=== PATIENT | female | born 1960 | race Hispanic/Latino ===

== ENCOUNTER → 2017-04-15 | Outpatient (CLI) | payer MEDICAID | END | disposition home or self-care (01) | LOC: RAH 09:58 | PROVIDERS: ATTEND Family Medicine | DX: Z12.31 Encounter for screening mammogram for malignant neoplasm of breast (principal) | CPT/HCPCS: 77067 ==

== ENCOUNTER 2017-05-22 22:15 | Emergency (ER) | payer MEDICAID ==
[2017-05-22 23:17] LABS: BASOPHILS % (AUTO) 0.8 % (0.0-5.0); EOSINOPHILS % (AUTO) 0.3 % (0.0-8.0); HEMATOCRIT 36.4 % (36-48); LYMPHOCYTES % (AUTO) 24.4 % (21.0-51.0); MEAN CORPUSCULAR HEMOGLOBIN 33.6 pg (27.0-33.0); MEAN CORPUSCULAR HGB CONC 35.4 g/dL (32.0-36.0); MONOCYTES % (AUTO) 6.8 % (3.0-13.0); NEUTROPHILS % (AUTO) 67.7 % (40.0-77.0); PLATELET COUNT (AUTO) 203 K/uL (130-400); RED BLOOD CELL COUNT(AUTO) 3.83 MIL/uL (4.00-5.50); RED CELL DISTRIBUTION WIDTH 13.4 % (11.0-15.5); WHITE BLOOD COUNT (AUTO) 12.5 K/uL (4.8-10.8)
[2017-05-22 23:25] LABS: CREATININE 0.5 mg/dL (0.5-1.5); POTASSIUM 3.7 mmol/L (3.5-5.1)
[2017-05-22 23:30] LABS: ALBUMIN 2.8 g/dL (3.5-5.0); BILIRUBIN,TOTAL 0.3 mg/dL (0.2-1.0); TOTAL PROTEIN, SERUM 6.9 g/dL (6.0-8.3)
[2017-05-23] MEDS ORDERED: SODIUM CHLORIDE 0.9% 1000ML 1,000 ML IV ONE (00:04)
[2017-05-23 00:27] LABS: APPEARANCE,URINE CLEAR (CLEAR); COLOR,URINE STRAW (YELLOW)
[2017-05-23 00:28] LABS: BILIRUBIN,URINE NEGATIVE (NEGATIVE); GLUCOSE, URINE (UA) NEGATIVE (NEGATIVE); KETONES,URINE NEGATIVE (NEGATIVE); LEUKOCYTE ESTERASE ,URINE NEGATIVE (NEGATIVE); NITRATE,URINE NEGATIVE (NEGATIVE); OCCULT BLOOD,URINE NEGATIVE (NEGATIVE); PH,URINE 6.5 (5.0-8.0); PROTEIN,URINE NEGATIVE (NEGATIVE); UROBILINOGEN,URINE 0.2 mg/dL (0.2-1.0)
== END 2017-05-23 02:35 | disposition home or self-care (01) ==
LOC: EDH 22:15
DX: E11.649 Type 2 diabetes mellitus with hypoglycemia without coma (principal); E78.5 Hyperlipidemia, unspecified; I10 Essential (primary) hypertension; E07.9 Disorder of thyroid, unspecified; Z88.5 Allergy status to narcotic agent; Z90.710 Acquired absence of both cervix and uterus
CPT/HCPCS: 36415; 80053; 81003; 82948 ×3; 85025; 96360; 96361; 99285; J7030

== ENCOUNTER → 2018-09-26 | Outpatient (CLI) | payer MEDICAID ==
[~2018-09-26] MED LIST: ALEN70TA10 PO; FLUO40CA49 PO; LEVO112T7 PO; LOSA100T58 PO; MELO-108 PO; OXCA150T27 PO; SITA100T12 PO; ZIPR60CA PO
== END | disposition home or self-care (01) ==
LOC: OIH 10:00
PROVIDERS: ATTEND Family Medicine
DX: M19.041 Primary osteoarthritis, right hand (principal); M19.031 Primary osteoarthritis, right wrist
CPT/HCPCS: 73110; 73130

== ENCOUNTER 2019-01-13 21:49 | Emergency (ER) | payer MEDICAID ==
[2019-01-13] MEDS ORDERED: IBUPROFEN 600 MG TABLET ONE (22:01)
== END 2019-01-13 22:41 | disposition home or self-care (01) ==
LOC: EDH 21:49
DX: S83.8X2A Sprain of other specified parts of left knee, initial encounter (principal); E11.9 Type 2 diabetes mellitus without complications; E78.5 Hyperlipidemia, unspecified; I10 Essential (primary) hypertension; Z72.0 Tobacco use; X50.9XXA Other and unspecified overexertion or strenuous movements or postures, initial encounter; Y93.89 Activity, other specified; Y92.098 Other place in other non-institutional residence as the place of occurrence of the external cause; Y99.8 Other external cause status
CPT/HCPCS: 73562

== ENCOUNTER → 2019-05-01 | Outpatient (CLI) | payer MEDICAID | END | disposition home or self-care (01) | LOC: OIH 11:12 | PROVIDERS: ATTEND Family Medicine | DX: I10 Essential (primary) hypertension (principal) | CPT/HCPCS: 71046 ==

== ENCOUNTER 2019-11-11 01:23 | Observation (INO) | payer MEDICAID ==
[~2019-11-11] VITALS: Ht 160 cm; Wt 87.1 kg
[~2019-11-11 01:23] MED LIST changes: -ALEN70TA10 PO; +ALEN70TA69 PO
[2019-11-11] MEDS ORDERED: MECLIZINE HCL 25 MG TABLET ONE ×2 (02:00→02:05)
[2019-11-11 02:02] LABS: BASOPHILS % (AUTO) 0.5 % (0.0-5.0); EOSINOPHILS % (AUTO) 0.6 % (0.0-8.0); HEMATOCRIT 43.9 % (36-48); LYMPHOCYTES % (AUTO) 31.4 % (21.0-51.0); MEAN CORPUSCULAR HEMOGLOBIN 31.2 pg (27.0-33.0); MEAN CORPUSCULAR VOLUME 94.4 fL (79-99); MONOCYTES % (AUTO) 6.2 % (3.0-13.0); NEUTROPHILS % (AUTO) 60.9 % (40.0-77.0); PLATELET COUNT (AUTO) 260 K/uL (130-400); RED BLOOD CELL COUNT(AUTO) 4.65 MIL/uL (4.00-5.50); RED CELL DISTRIBUTION WIDTH 13.2 % (11.0-15.5); WHITE BLOOD COUNT (AUTO) 12.2 K/uL (4.8-10.8)
[2019-11-11 02:11] LABS: CREATININE 0.7 mg/dL (0.5-1.5); POTASSIUM 4.1 mmol/L (3.5-5.1)
[2019-11-11 02:15] LABS: ALBUMIN 3.6 g/dL (3.5-5.0); BILIRUBIN,TOTAL 0.3 mg/dL (0.2-1.0); INR 0.89 (0.85-1.15); PARTIAL THROMBOPLASTIN TIME 27.5 SEC (26.3-35.5); PROTHROMBIN TIME 9.7 SEC (9.6-11.6); TOTAL PROTEIN, SERUM 8.3 g/dL (6.0-8.3)
[2019-11-11 02:39] LABS: BILIRUBIN,URINE Negative (NEGATIVE); COLOR,URINE Yellow (YELLOW); GLUCOSE, URINE (UA) Negative (NEGATIVE); KETONES,URINE Negative (NEGATIVE); LEUKOCYTE ESTERASE ,URINE Negative (NEGATIVE); NITRATE,URINE Negative (NEGATIVE); OCCULT BLOOD,URINE Negative (NEGATIVE); PH,URINE 6.5 (5.0-8.0); PROTEIN,URINE POS 2+ mg/dL (NEGATIVE); UROBILINOGEN,URINE 0.2 mg/dL (0.2-1.0)
[2019-11-11 02:43] LABS: APPEARANCE,URINE SLIGHTLY CLOUDY (CLEAR)
[2019-11-11 02:55] LABS: BACTERIA,URINE Few /HPF (None Seen); RBC,URINE 0-1 /HPF (0-1)
[2019-11-11] MEDS ORDERED: ASPIRIN 325 MG TABLET ONE (03:07)
[2019-11-11] MEDS ORDERED: POTASSIUM CHLORIDE 10% ELIXIR 20 MEQ/15 ML UDCUP PO PRN (06:15)
[2019-11-11] MEDS ORDERED: POTASSIUM CHLORIDE 20 MEQ ERTAB PO PRN (06:15)
[2019-11-11] MEDS ORDERED: ACETAMINOPHEN 325 MG TAB PO PRN (06:15)
[2019-11-11] MEDS ORDERED: POTASSIUM CHLORIDE 20MEQ/100ML 100 ML IV PRN (06:15)
[2019-11-11] MEDS ORDERED: HYDRALAZINE HCL 20 MG/ML VIAL IV PRN (06:15)
[2019-11-11] MEDS ORDERED: NITROGLYCERIN 0.4 MG SL TAB SL PRN (06:15)
[2019-11-11] MEDS ORDERED: ONDANSETRON HCL 4 MG/2 ML VIAL IV PRN (06:15)
[2019-11-11] MEDS ORDERED: MORPHINE SULFATE 2 MG/ML 1ML SYG IV PRN (06:15)
[2019-11-11] MEDS ORDERED: DiphenhydrAMINE HCL 50 MG/ML VIAL IV PRN (06:15)
[2019-11-11] MEDS ORDERED: ZOLPIDEM TARTRATE 5 MG TAB PO PRN (06:15)
[2019-11-11] MEDS ORDERED: LIDOCAINE HCL-MPF 1% 2ML VIAL IV PRN (06:15)
[2019-11-11] MEDS ORDERED: LACTULOSE 20 GM/30 ML UDCUP PO PRN (06:15)
[2019-11-11] MEDS ORDERED: MECLIZINE HCL 25 MG TABLET PO PRN (06:30)
[2019-11-11 06:37] LABS: HEMOGLOBIN A1C 7.5 % (4.0-6.0)
[2019-11-11 06:59] LABS: CHOLESTEROL 194 mg/dL (<200); HDL CHOLESTEROL 69 mg/dL (35-85); TRIGLYCERIDES 170 mg/dL (30-200)
[2019-11-11 07:00] LABS: LDL DIRECT 105 mg/dL (0-99)
[2019-11-11] MEDS: INSULIN HUMULIN R 100 UNIT/ML 3ML SQ SCH ×4 (07:30→20:46)
[2019-11-11 08:31] VITALS: BP 161/79
[2019-11-11] MEDS: LOSARTAN 50 MG TABLET PO SCH ×2 (09:00→10:14)
[2019-11-11] MEDS: FAMOTIDINE 20MG TAB 20 MG TAB PO SCH ×3 (09:00→20:48)
[2019-11-11] MEDS: SODIUM CHLORIDE 0.9% 1000ML 1,000 ML IV SCH (10:04)
[2019-11-11] MEDS: ASPIRIN 81 MG EC TAB PO SCH (10:14)
[2019-11-11] MEDS: ENOXAPARIN SODIUM 40 MG/0.4 ML SYRINGE SQ SCH (10:16)
[2019-11-11] MEDS ORDERED: ERGO500014 PO (11:17)
[2019-11-11] MEDS ORDERED: LEVO125T11 PO (11:17)
[2019-11-11] MEDS ORDERED: OXCA150T27 PO (11:17)
[2019-11-11] MEDS ORDERED: METF-446 PO (11:17)
[2019-11-11] MEDS ORDERED: FAMO20TA8 PO (11:17)
[2019-11-11] MEDS ORDERED: LOSA100T58 PO (11:17)
[2019-11-11] MEDS ORDERED: HYDR-4458 PO (11:17)
[2019-11-11] MEDS ORDERED: INSLAN SQ (11:17)
[2019-11-11] MEDS ORDERED: ZIPR60CA PO (11:17)
[2019-11-11] MEDS ORDERED: LORA0.5T83 PO (11:17)
[2019-11-11] MEDS ORDERED: LORAZEPAM 0.5 MG TABLET PO PRN (11:30)
[2019-11-11 11:36] VITALS: BP 135/59
--- NOTE | 2019-11-11 16:19 | NUR ---
INITIAL: Met with pt this afternoon to discuss dcp. Pt mentions that she lives w her dtr Frances. Prior to admission she used a cane for ambulation. Sh requires assistance w ADLs from her provider. Pt unable to recall # of provider hours. Pt states that she also has a chair avail. Pt feels safe and comfortable to [place]. CM to continue to follow and wait for Md recommendations. Addendum: 11/11/19 at 1621 by ALVA SANCHEZ Amended: Links added.
[2019-11-11 16:22] VITALS: BP 119/61
[2019-11-11 20:34] VITALS: BP 131/69
[2019-11-11] MEDS: OXCARBAZEPINE 300 MG TAB PO SCH (20:50)
[2019-11-11 23:23] VITALS: BP 129/74
[2019-11-12 03:38] VITALS: BP 136/78
[2019-11-12 06:11] LABS: BASOPHILS % (AUTO) 0.5 % (0.0-5.0); EOSINOPHILS % (AUTO) 0.5 % (0.0-8.0); HEMATOCRIT 40.4 % (36-48); LYMPHOCYTES % (AUTO) 29.3 % (21.0-51.0); MEAN CORPUSCULAR HEMOGLOBIN 30.6 pg (27.0-33.0); MEAN CORPUSCULAR HGB CONC 32.7 g/dL (32.0-36.0); MEAN CORPUSCULAR VOLUME 93.7 fL (79-99); MONOCYTES % (AUTO) 6.6 % (3.0-13.0); NEUTROPHILS % (AUTO) 62.7 % (40.0-77.0); PLATELET COUNT (AUTO) 242 K/uL (130-400); RED BLOOD CELL COUNT(AUTO) 4.31 MIL/uL (4.00-5.50); RED CELL DISTRIBUTION WIDTH 13.1 % (11.0-15.5); WHITE BLOOD COUNT (AUTO) 10.1 K/uL (4.8-10.8)
[2019-11-12 06:29] LABS: ALBUMIN 3.2 g/dL (3.5-5.0); BILIRUBIN,TOTAL 0.4 mg/dL (0.2-1.0); CREATININE 0.6 mg/dL (0.5-1.5); MAGNESIUM 1.6 mg/dL (1.80-2.40); PHOSPHORUS 3.3 mg/dL (2.5-4.9); POTASSIUM 3.8 mmol/L (3.5-5.1); TOTAL PROTEIN, SERUM 7.4 g/dL (6.0-8.3)
[2019-11-12] MEDS: INSULIN HUMULIN R 100 UNIT/ML 3ML SQ SCH ×2 (06:34→11:30)
[2019-11-12] MEDS: SODIUM CHLORIDE 0.9% 1000ML 1,000 ML IV SCH ×2 (06:35→14:04)
[2019-11-12] MEDS ORDERED: LEVOTHYROXINE 150 MCG TABLET PO SCH (07:30)
[2019-11-12] MEDS ORDERED: LEVOTHYROXINE 125 MCG TABLET PO SCH (07:30)
[2019-11-12 08:00] VITALS: BP 131/67
[2019-11-12] MEDS: OXCARBAZEPINE 300 MG TAB PO SCH (09:00)
[2019-11-12] MEDS ORDERED: INSULIN GLARGINE 100 UNITS/ML 10 ML VIAL SQ SCH (09:00)
[2019-11-12] MEDS ORDERED: ZIPRASIDONE HCL 20 MG CAPSULE PO SCH ×2 (09:00→10:45)
[2019-11-12] MEDS: ASPIRIN 81 MG EC TAB PO SCH (09:42)
[2019-11-12] MEDS: FAMOTIDINE 20MG TAB 20 MG TAB PO SCH (09:42)
[2019-11-12] MEDS: LOSARTAN 50 MG TABLET PO SCH (09:43)
[2019-11-12] MEDS: ENOXAPARIN SODIUM 40 MG/0.4 ML SYRINGE SQ SCH (09:44)
[2019-11-12 11:53] VITALS: BP 139/75
--- NOTE | 2019-11-12 13:00 | NUR ---
PATIENT REFUSED TO HAVE MRI DONE , ASKED HER ON REASON ,PER PATIENT STATEMENT " NO OTHER REASON OTHER THAN JUST DONT WANT TO HAVE IT DONE". PATIENT SIGNED REFUSAL FORM .PATIENT STATED SHE ALSO JUST WANTS TO GO HOME ALREADY . INFORMED PRIMARY MUMTAZ CANTU .PER PRIMARY WILL DC PLAN FOR THIS AFTERNOON
[2019-11-12] MEDS ORDERED: FLU VACC QS2020-21(6MOS UP)/PF 60 MCG/0.5 ML ML IM ONE ×2 (16:00)
--- NOTE | 2019-11-12 16:25 | NUR ---
DISCHARGE PROVIDED DISCHARGE INSTRUCTIONS TO PATIENT...WENT OVER SEVERAL TOPICS WITH HER INCLUDING MANAGING HER DM, QUITTING SMOKING AND MANAGING HER HTN...ANSWERED ALL QUESTIONS AND CONCERNS...REMINDED HER TO FOLLOW UP WITH HER PRIMARY CARE PHYSICIAN APPOINTMENT AND CONTINUE TO TAKE HER MEDS PRESCRIBED.
== END 2019-11-12 16:15 | disposition home or self-care (01) ==
LOC: EDH 01:23 → EDHIP 01:24 → 3AH 07:45
PROVIDERS: ADMIT Internal Medicine Critical Care Medicine; ATTEND Internal Medicine Critical Care Medicine
DX: I20.8 Other forms of angina pectoris (principal); R55 Syncope and collapse; I10 Essential (primary) hypertension; E11.9 Type 2 diabetes mellitus without complications; E78.5 Hyperlipidemia, unspecified; E03.9 Hypothyroidism, unspecified; E66.9 Obesity, unspecified; J32.9 Chronic sinusitis, unspecified; F41.9 Anxiety disorder, unspecified; F17.200 Nicotine dependence, unspecified, uncomplicated; Z23 Encounter for immunization; Z86.73 Personal history of transient ischemic attack (TIA), and cerebral infarction without residual deficits; Z96.651 Presence of right artificial knee joint; Z79.899 Other long term (current) drug therapy; Z88.5 Allergy status to narcotic agent; Z68.35 Body mass index [BMI] 35.0-35.9, adult
CPT/HCPCS: 36415 ×2; 70450; 71045; 80053 ×2; 80061; 81001; 82550; 82948 ×7; 83036; 83690; 83735; 83880; 84100; 84443; 84484 ×3; 85025 ×2; 85610; 85730; 90471; 93005; 93306; 93356; 93880; 96360; 96361 ×2; 96372 ×2; 99285; G0378 ×24; J1650 ×2; Q2035; G0008

== ENCOUNTER → 2019-11-28 | Outpatient (CLI) | payer MEDICAID ==
[~2019-11-28] MED LIST changes: -ALEN70TA69 PO; +ERGO500014 PO; +FAMO20TA8 PO; -FLUO40CA49 PO; +HYDR-4458 PO; +INSLAN SQ; -LEVO112T7 PO; +LEVO125T11 PO; +LORA0.5T83 PO; -MELO-108 PO; +METF-446 PO; -SITA100T12 PO
== END | disposition home or self-care (01) ==
LOC: OIH 10:43
PROVIDERS: ATTEND Family Medicine
DX: I25.10 Atherosclerotic heart disease of native coronary artery without angina pectoris (principal); I10 Essential (primary) hypertension
CPT/HCPCS: 71046

== ENCOUNTER 2019-12-03 22:53 | Observation (INO) | payer MEDICAID ==
[~2019-12-03] VITALS: Ht 152 cm; Wt 86.2 kg
[2019-12-03] MEDS ORDERED: PREDNISONE 20 MG TABLET ONE (23:49)
[2019-12-03] MEDS ORDERED: IPRATROPIUM/ALBUTEROL SULFATE 3 ML SOLUTION IH ONE (23:53)
[2019-12-04 00:21] LABS: CREATININE 0.7 mg/dL (0.5-1.5)
[2019-12-04 00:26] LABS: ALBUMIN 3.5 g/dL (3.5-5.0); BILIRUBIN,TOTAL 0.4 mg/dL (0.2-1.0); TOTAL PROTEIN, SERUM 8.2 g/dL (6.0-8.3)
[2019-12-04 00:29] LABS: INR 0.94 (0.85-1.15); PARTIAL THROMBOPLASTIN TIME 26.5 SEC (26.3-35.5); PROTHROMBIN TIME 10.2 SEC (9.6-11.6)
[2019-12-04 00:36] LABS: BASOPHILS % (AUTO) 0.6 % (0.0-5.0); EOSINOPHILS % (AUTO) 0.7 % (0.0-8.0); HEMATOCRIT 41.3 % (36-48); LYMPHOCYTES % (AUTO) 26.3 % (21.0-51.0); MEAN CORPUSCULAR HGB CONC 33.2 g/dL (32.0-36.0); MEAN CORPUSCULAR VOLUME 93.4 fL (79-99); MONOCYTES % (AUTO) 7.3 % (3.0-13.0); NEUTROPHILS % (AUTO) 64.8 % (40.0-77.0); PLATELET COUNT (AUTO) 264 K/uL (130-400); RED BLOOD CELL COUNT(AUTO) 4.42 MIL/uL (4.00-5.50); RED CELL DISTRIBUTION WIDTH 13.5 % (11.0-15.5); WHITE BLOOD COUNT (AUTO) 12.7 K/uL (4.8-10.8)
[2019-12-04 00:52] LABS: B-TYPE NATRIURETIC PEPTIDE 7 pg/mL (0-100)
[2019-12-04] MEDS ORDERED: CEFTRIAXONE SODIUM 1 GM ONE (01:36)
[2019-12-04] MEDS ORDERED: AZITHROMYCIN 500MG+NS 250ML 250 ML IV ONE (01:36)
[2019-12-04] MEDS ORDERED: METHYLPREDNISOLONE SOD SUCC 40MG/ML 1ML ONE ×2 (04:34→11:51)
[2019-12-04] MEDS ORDERED: ALBUTEROL INHALER 90MCG/INH IH ONE (04:34)
[2019-12-04] MEDS ORDERED: METHYLPREDNISOLONE SOD SUCC 40MG/ML 1ML IVP SCH (06:00)
[2019-12-04] MEDS ORDERED: ALBUTEROL INHALER 90MCG/INH IH SCH (06:00)
[2019-12-04] MEDS ORDERED: NICOTINE 21 MG/ 24 HR PATCH TD SCH (06:45)
[2019-12-04 09:17] LABS: BASOPHILS % (AUTO) 0.3 % (0.0-5.0); EOSINOPHILS % (AUTO) 0.1 % (0.0-8.0); HEMATOCRIT 42.5 % (36-48); LYMPHOCYTES % (AUTO) 11.5 % (21.0-51.0); MEAN CORPUSCULAR HEMOGLOBIN 31.4 pg (27.0-33.0); MEAN CORPUSCULAR HGB CONC 32.5 g/dL (32.0-36.0); MEAN CORPUSCULAR VOLUME 96.6 fL (79-99); MONOCYTES % (AUTO) 1.1 % (3.0-13.0); NEUTROPHILS % (AUTO) 86.7 % (40.0-77.0); PLATELET COUNT (AUTO) 245 K/uL (130-400); RED CELL DISTRIBUTION WIDTH 13.6 % (11.0-15.5); WHITE BLOOD COUNT (AUTO) 11.9 K/uL (4.8-10.8)
[2019-12-04 09:23] LABS: CARBON DIOXIDE 24 mmol/L (21-32); CHLORIDE 101 mmol/L (101-111); CREATININE 0.8 mg/dL (0.5-1.5); GLOMERULAR FILTR. RATE CALC 78 mL/min (>60); GLUCOSE,RANDOM 214 mg/dL (70-105); POTASSIUM 5.5 mmol/L (3.5-5.1); SODIUM SERUM 136 mmol/L (136-145); UREA NITROGEN, BLOOD 12 mg/dL (7-18)
[2019-12-04] MEDS ORDERED: ROSU5TAB12 PO (09:42)
[2019-12-04] MEDS ORDERED: BIMA12.5OS OU (09:42)
[2019-12-04] MEDS ORDERED: ASPI-1197 PO (09:42)
[2019-12-04] MEDS ORDERED: FLUT1AER IH (09:42)
[2019-12-04] MEDS ORDERED: ONDANSETRON HCL 4 MG/2 ML VIAL IVP PRN (10:15)
[2019-12-04] MEDS ORDERED: CEFTRIAXONE SODIUM 1 GM IVP SCH ×2 (10:15→14:00)
[2019-12-04] MEDS ORDERED: HYDRALAZINE HCL 20 MG/ML VIAL IV PRN (10:15)
[2019-12-04] MEDS ORDERED: ACETAMINOPHEN 325 MG TAB PO PRN (10:15)
[2019-12-04] MEDS ORDERED: FUROSEMIDE 10 MG/ML 2ML VIAL IV SCH (10:15)
[2019-12-04] MEDS ORDERED: LOPERAMIDE 1 MG/7.5 ML UDCUP PO PRN (10:15)
[2019-12-04] MEDS ORDERED: AZITHROMYCIN 500MG+NS 250ML 250 ML IV SCH (10:15)
[2019-12-04 10:28] LABS: ERYTHROCYTE SEDIMENTATION RATE 22 MM/HR (0-30)
[2019-12-04] MEDS ORDERED: FUROSEMIDE 10 MG/ML 4ML VIAL ONE (11:52)
[2019-12-04] MEDS ORDERED: DEXAMETHASONE SOD PHOSPHATE 4 MG/ML 1ML VIAL IVP SCH (14:30)
[2019-12-04] MEDS ORDERED: SODIUM CHLORIDE 0.9% 50 ML IV ONE (15:41)
--- NOTE | 2019-12-04 18:17 | NUR ---
PATIENT CALLED BY PHONE FOR DC PLANNING. PATIENT LIVES ALONE BUT RIGHT NEXT TO HER DAUGHTER BALBIR WHO IS ALSO HER PROVIDER. STATES DAUGHTER ASSISTS WITH ALL ADLS; SHE IS AMBULATORY, USES A CANE AT TIMES, HAS A SHOWER BENCH, DOES NOT DRIVE AND HOME IS SAFE AND ACCESSIBLE, DCP TO HOME [place] TO ARRANGE TRANSPORT CM TO FOLLOW Addendum: 12/04/19 at 1820 by GUNNER VIEIRA RN CM Amended: Links added.
[2019-12-04] MEDS ORDERED: DEXAMETHASONE SOD PHOSPHATE 10MG/ML 1ML VIAL ONE (20:07)
[2019-12-04] MEDS ORDERED: FUROSEMIDE 10 MG/ML 2ML VIAL ONE (20:07)
[2019-12-04] MEDS ORDERED: FAMOTIDINE 20MG TAB 20 MG TAB ONE (20:16)
[2019-12-04] MEDS ORDERED: FAMOTIDINE 20MG TAB 20 MG TAB PO SCH (21:00)
[2019-12-05] MEDS ORDERED: AZITHROMYCIN 500MG+NS 250ML 250 ML IV SCH (01:00)
[2019-12-05] MEDS ORDERED: CEFTRIAXONE SODIUM 1 GM ONE (02:45)
[2019-12-05 06:16] LABS: BASOPHILS % (AUTO) 0.2 % (0.0-5.0); EOSINOPHILS % (AUTO) 0.3 % (0.0-8.0); HEMATOCRIT 42.3 % (36-48); LYMPHOCYTES % (AUTO) 10.9 % (21.0-51.0); MEAN CORPUSCULAR HGB CONC 33.1 g/dL (32.0-36.0); MEAN CORPUSCULAR VOLUME 93.6 fL (79-99); MONOCYTES % (AUTO) 3.5 % (3.0-13.0); NEUTROPHILS % (AUTO) 84.6 % (40.0-77.0); PLATELET COUNT (AUTO) 277 K/uL (130-400); RED BLOOD CELL COUNT(AUTO) 4.52 MIL/uL (4.00-5.50); RED CELL DISTRIBUTION WIDTH 13.2 % (11.0-15.5); WHITE BLOOD COUNT (AUTO) 17.3 K/uL (4.8-10.8)
[2019-12-05 06:37] LABS: ALBUMIN 3.6 g/dL (3.5-5.0); BILIRUBIN,TOTAL 0.2 mg/dL (0.2-1.0); CREATININE 0.9 mg/dL (0.5-1.5); MAGNESIUM 1.7 mg/dL (1.80-2.40); PHOSPHORUS 4.3 mg/dL (2.5-4.9); POTASSIUM 4.6 mmol/L (3.5-5.1); TOTAL PROTEIN, SERUM 8.3 g/dL (6.0-8.3)
[2019-12-05 07:41] LABS: ABG BASE EXCESS -2.2 mmol/L (-2.0-3.0); ABG HCO3 23.9 mmol/L (21.0-28.0); ABG OXYGEN SATURATION 95.2 % (95.0-99.0); ABG PCO2 46 mmHg (32-45)
--- NOTE | 2019-12-05 08:07 | NUR ---
patient still in ER department, awaiting for patient to be transferred to medical floor in order to be able to initate skilled Physical Therapy evaluation as ordered by Hollie Woodard NP Addendum: 12/05/19 at 0808 by ROSE MCINTYRE, PT PT Amended: Links added.
[2019-12-05] MEDS ORDERED: FAMOTIDINE 20MG TAB 20 MG TAB ONE (09:54)
[2019-12-05] MEDS ORDERED: DEXAMETHASONE SOD PHOSPHATE 10MG/ML 1ML VIAL ONE (09:54)
[2019-12-05] MEDS ORDERED: FUROSEMIDE 10 MG/ML 2ML VIAL ONE (09:55)
[2019-12-05] MEDS ORDERED: AZIT500T PO (14:52)
[2019-12-05] MEDS ORDERED: METH4TAB3 PO (14:52)
--- NOTE | 2019-12-05 15:24 | NUR ---
DC PT DC HOME,NO DISTRESS NOTED. PT DENIED ANY PAIN OR DISCOMFORTS. PIV TO LEFT ARM DC , SITE ASYMPTOMATIC, DC INSTRUCTIONS GIVEN TO PT INSTRUCTED ON NEW MED REGIMEN AND TO F/U WITH DR. Olivier FRANKLIN. PT MEDS SEND VIA [facility] . INSTRUCTED PT TO ORDER SCHEDULE CLERK MEDICATIONS [facility] [place] PT VERBALIZED UNDERSTANDING.
== END 2019-12-05 15:48 | disposition home or self-care (01) ==
LOC: EDH 22:53 → EDHIP 22:54
PROVIDERS: ADMIT Internal Medicine Critical Care Medicine; ATTEND Internal Medicine Critical Care Medicine
DX: M54.6 Pain in thoracic spine (principal); Z20.828 Contact with and (suspected) exposure to other viral communicable diseases; R05 Cough; I10 Essential (primary) hypertension; E78.5 Hyperlipidemia, unspecified; E66.9 Obesity, unspecified; E11.9 Type 2 diabetes mellitus without complications; E03.9 Hypothyroidism, unspecified; F17.210 Nicotine dependence, cigarettes, uncomplicated; F41.9 Anxiety disorder, unspecified; Z68.37 Body mass index [BMI] 37.0-37.9, adult; Z79.4 Long term (current) use of insulin; Z79.51 Long term (current) use of inhaled steroids; Z79.82 Long term (current) use of aspirin; Z79.899 Other long term (current) drug therapy; Z86.73 Personal history of transient ischemic attack (TIA), and cerebral infarction without residual deficits; Z88.5 Allergy status to narcotic agent; Z90.710 Acquired absence of both cervix and uterus; Z96.651 Presence of right artificial knee joint
CPT/HCPCS: 36415 ×2; 36600; 71045; 71046; 80048; 80053 ×2; 82803; 83605 ×2; 83735; 83880; 84100; 84145; 84484; 85025 ×3; 85610; 85651; 85730; 87040 ×2; 87426; 87804 ×2; 93005; 94640; 99285; G0378 ×25; J0456; J0696 ×2; J1100 ×2; J1940 ×3; J2920 ×2; U0003

== ENCOUNTER → 2020-01-07 | Outpatient (CLI) | payer MEDICAID ==
[~2020-01-07] MED LIST changes: +ASPI-1197 PO; +AZIT500T PO; +BIMA12.5OS OU; +FLUT1AER IH; +METH4TAB3 PO; +ROSU5TAB12 PO
== END | disposition home or self-care (01) ==
LOC: OIH 08:42
PROVIDERS: ATTEND Family Medicine
DX: J41.0 Simple chronic bronchitis (principal); M47.815 Spondylosis without myelopathy or radiculopathy, thoracolumbar region
CPT/HCPCS: 71046

== ENCOUNTER 2024-07-11 15:14 | Emergency (ER) | payer MEDICAID ==
[~2024-07-11] VITALS: Ht 160 cm; Wt 75.7 kg
[~2024-07-11 15:14] MED LIST changes: -ERGO500014 PO; +ERGO500093 PO; -LOSA100T58 PO; +LOSA100T59 PO; -ROSU5TAB12 PO; +ROSU5TAB51 PO; -ZIPR60CA PO; +ZIPR60CA6 PO
--- NOTE | 2024-07-11 15:19 | ERN ---
ED Note History of Present Illness Stated Complaint: HIP PAIN Time Seen by MD: 15:15 Dictation: 64-YEAR-OLD FEMALE COMING IN TODAY VIA EMS WITH COMPLAINTS OF CHRONIC RIGHT HIP PAIN AND A HISTORY OF DEGENERATIVE JOINT PAIN. SHE STATES SHE SEES DR. VILLAGRAN, AND IS SCHEDULED FOR A HIP REPLACEMENT IN AUGUST. SHE STATES SHE TAKES HYDROCODONE AT HOME HOWEVER SHE RAN OUT SO SHE DECIDED TO CALL EMS FOR TRANSFER TO THE EMERGENCY ROOM FOR A REFILL AND PAIN MANAGEMENT. SHE DENIES ANY HISTORY OF RECENT FALLS OR INJURIES. Allergies: Coded Allergies: No Known Drug Allergies (Verified Allergy, Unknown, 07/11/24) Home Meds Active Scripts Azithromycin (Zithromax) 500 Mg Tablet, 500 MG PO DAILY for 7 Days, #7 TAB Prov:PEPE ROPER BUILDING SERVICES SUPERVISOR 12/05/19 Methylprednisolone (Medrol) 4 Mg Tab.ds.pk, 4 MG PO AD, #1 PACK Prov:PEPE ROPER BUILDING SERVICES SUPERVISOR 12/05/19 Reported Medications Bimatoprost (Lumigan 0.01% Ophth Soln) 20 Drop/Ml Opsol, 1 DROP OU HS, DROP 12/04/19 Aspirin (Aspirin) 81 Mg Tab.chew, 81 MG PO DAILY, TAB.CHEW 12/04/19 Rosuvastatin Calcium (Rosuvastatin Calcium) 5 Mg Tablet, 5 MG PO DAILY, TAB 12/04/19 Fluticasone/Vilanterol (Breo Ellipta 100-25 Mcg INH) 1 Each Aer.pow.ba, 1 EACH IH DAILY 12/04/19 Ergocalciferol (Vitamin D2) (Vitamin D2) 1,250 Mcg Capsule, 1250 MCG PO WEEKLY ON TUESDAY, CAP 11/11/19 Levothyroxine Sodium (Levothyroxine Sodium) 125 Mcg Tablet, 125 MCG PO ACBKFST, TAB 11/11/19 Lorazepam (Ativan) 0.5 Mg Tablet, 0.5 MG PO BID PRN for ANXIETY/AGITATION, TAB 11/11/19 Famotidine (Famotidine) 20 Mg Tablet, 20 MG PO DAILY, TAB 11/11/19 Losartan Potassium (Losartan Potassium) 100 Mg Tablet, 100 MG PO DAILY, TAB 11/11/19 Metformin HCl (Metformin HCl) 1,000 Mg Tablet, 1000 MG PO BIDMEALS, TAB 11/11/19 Hydrocodone/Acetaminophen (Farwell 7.5-325 Tablet) 1 Each Tablet, 1 EACH PO Q6HPRN PRN for PAIN LEVEL 1 TO 5, TAB 11/11/19 Oxcarbazepine (Oxcarbazepine) 150 Mg Tablet, 150 MG PO BID, TAB 11/11/19 Insulin Glargine,Hum.rec.anlog (Lantus) 100 Units/Ml Inj, 18 UNITS SQ DAILY, ML 11/11/19 Ziprasidone HCl (Ziprasidone HCl) 60 Mg Capsule, 60 MG PO DAILY, CAP 11/11/19 Past Medical History Past Medical History: Other (DJD RIGHT HIP) History: Not Applicable RN Note Reviewed/Agreed w/PFSH: Yes Review of System Dictation CONSTITUTIONAL: NEGATIVE EXCEPT FOR HPI HEAD/FACE: NEGATIVE EXCEPT FOR HPI EENT: NEGATIVE EXCEPT FOR HPI RESPIRATORY: NEGATIVE EXCEPT FOR HPI GASTROINTESTINAL/ABDOMINAL: NEGATIVE EXCEPT FOR HPI GENITOURINARY: NEGATIVE EXCEPT FOR HPI MUSCULOSKELETAL: NEGATIVE EXCEPT FOR HPI CHRONIC RIGHT HIP PAIN INTEGUMENTARY: NEGATIVE EXCEPT FOR HPI NEUROLOGICAL/PSYCH: NEGATIVE EXCEPT FOR HPI HEMATOLOGIC/LYMPHATIC: NEGATIVE EXCEPT FOR HPI ALL SYSTEMS NEGATIVE, EXCEPT NOTED ABOVE. 13 POINT REVIEW OF SYSTEMS ASSESSED AND ALL NEGATIVE EXCEPT FOR ABOVE. Initial Vital Sign VS Vital Signs Date Time Temp Pulse Resp B/P (MAP) Pulse Ox O2 Delivery O2 Flow Rate FiO2 07/11/24 15:22 98.8 70 18 130/73 95 Room Air 0 07/11/24 15:25 21 Physical Exam Dictation VITAL SIGNS REVIEWED GENERAL APPEARANCE: ALERT, ORIENTED X 3, MODERATE ACUTE DISTRESS, WELL DEVELOPED, NOURISHED. HEAD AND FACE: NON-TRAUMATIC. EYES: PERRL, PINK CONJUNCTIVAS, EYELID NO TRAUMA, ANTERIOR CHAMBER WITH ARCUS SENILIS. EARS: PINNAS INTACT AND NO SIGNS OF TRAUMA OR ERYTHEMA EAR CANALS CLEAR AND NO DISCHARGE TM NO ERYTHEMA NOSE: NO DISCHARGE, NO BLEEDING. OROPHARYNX: MOUTH NORMAL, TONGUE PINK, PHARYNX CLEAR,NO ERYTHEMA, TONSILS NO EXUDATES, NO ABSCESSES NOTED, MUCOUS MEMBRANE MOIST NECK: SUPPLE, NON-TENDER, NO THYROMEGALY, NO MASSES, NO JVD, NO BRUITS BREAST:DEFERRED CHEST:NO TENDERNESS, NO CREPITUS, NO PARADOXICAL MOVEMENT, NO RETRACTIONS LUNGS:CLEAR, WELL-VENTILATED, SYMMETRIC, NO RALES, NO WHEEZING, NO RHONCHI, NO STRIDOR, GOOD BREATH SOUNDS BILATERALLY HEART: REGULAR RATE, REGULAR RHYTHM, NO MURMUR, NO GALLOPS VASCULAR: NO PERIPHERAL EDEMA, ABDOMEN: SOFT, POSITIVE BOWEL SOUNDS, NONDISTENDED, NO GUARDING, NONTENDER, NO REBOUND, NO MASSES NO HEPATOMEGALY, NO SPLENOMEGALY, NO KRAMER'S SIGN, NO HERNIAS. RECTAL: DEFERRED GENITAL: DEFERRED NEUROLOGICAL: NORMAL SPEECH, MOTOR FUNCTION INTACT, SENSORY FUNCTION INTACT MUSCULOSKELETAL: NECK NONTENDER, FULL RANGE OF MOTION, BACK NONTENDER, FULL RANGE OF MOTION, EXTREMITIES: GENERALIZED RIGHT HIP TENDERNESS WITH DECREASED RANGE OF MOTION SECONDARY TO PAIN. NO SHORTENING OR ROTATION NOTED. DISTAL NEUROVASCULAR CMS INTACT SKIN: COLOR PINK, DRY, NO TURGOR, NO RASH, NO LACERATIONS, NO ABRASIONS, NO CONTUSIONS. LYMPHATIC: DEFERRED Results (Laboratory/Radiology) Laboratory/Radiology HIP UNILAT 2-3VW RIGHT REASON: CHRONIC RIGHT HIP PAIN. THREE OF DJD COMPARISON: None TECHNIQUE: 3 views of the obtained of the pelvis and right hip. FINDINGS: Bones of the pelvis appear intact. There are no fractures. SI joints. Intact. There are degenerative changes in the right hip evidenced by osteophytes along the joint margin. There is moderate narrowing. There are no fractures. Soft tissues appear unremarkable. IMPRESSION: 1. Moderate to marked osteoarthritis right hip. Labs Reviewed?: Yes ED Course ED Course Orders Procedure Category Date Status Time Hip Unilat 2-3vw Right RAD 07/11/24 Resulted 15:16 Acetaminophen With PHA 07/11/24 Complete Codeine (Tylenol-Code 15:30 Dexamethasone 4mg/Ml PHA 07/11/24 Complete 1ml Vial (Dexametha 15:30 Current Medications Medications (Trade) Dose Ordered Sig/Ofelia Route PRN Reason Start Time Stop Time Status Last Admin Dose Admin Acetaminophen/ Codeine Phosphate (TYLenol-coDEINE TAB) 2 tab ONCE ONCE PO 07/11/24 15:30 07/11/24 15:31 DC 07/11/24 15:40 Dexamethasone Sodium Phosphate (dexaMETHasone 4MG/ML 1ML VIAL) 8 mg ONCE ONCE IM 07/11/24 15:30 07/11/24 15:31 DC 07/11/24 15:40 Vital Signs Date Time Temp Pulse Resp B/P (MAP) Pulse Ox O2 Delivery O2 Flow Rate FiO2 07/11/24 15:25 98.8 70 18 130/73 95 Room Air* 0 21 07/11/24 15:22 98.8 70 18 130/73 95 Room Air 0 Medical Decision Making [facility] MEDICAL DISCHARGE MAKING BASED ON PAIN MANAGEMENT AND X-RAY OF RIGHT HIP. HIP SHOWS MARKED DJD PATIENT WILL BE DISCHARGED HOME WITH TYLENOL NO. 3 AND TOLD TO FOLLOW UP WITH FOR MANAGEMENT DX & DISP Disposition: Discharge Departure Impression: Primary Impression: Degenerative joint disease of right hip Additional Impression: Hip pain, right Condition: Stable Scripts Acetaminophen with Codeine (Acetaminophen-Cod #3 Tablet) 300 Mg-30 Mg Tablet 1 TAB PO Q4H PRN for MODERATE TO SEVERE, #12 TAB 0 Refills Prov: ALEX WYMAN INSURANCE CLAIM AUDITOR 07/11/24 Additional Instructions: Follow-up with primary care provider in 1 to 2 days. Take medications as directed here in the emergency room. Okay to continue home medications unless otherwise discussed during your visit in the emergency room today. Return to your nearest emergency room if symptoms worsen or if there is no improvement. Call 911 if you need immediate assistance. Take Tylenol or Motrin [id number]-[id number]-[id number] as needed and if no contraindications are present. Increase oral hydration. A wound culture or urine culture was ordered here in the emergency room department please follow-up with primary care provider and advise them to get repeat ports from our facility. If you had any Charles wrap/splints that were applied here, please do not remove them until you see your primary care or specialty. Activity as tolerated. Take Tylenol with codeine for severe pain. Follow up with without fail in 1-2 days for management of your pain Referrals: CELENA FRANKLIN MD (PCP) RODRIGUEZ RICHARD MD Time of Disposition: 16:00 I have reviewed the case, and I agree with, Diagnosis and Plan ALEX WYMAN NP Jul 11, 2024 15:19
[2024-07-11 15:25] VITALS: BP 130/73; PULSE 70; RESP 18; TEMP 98.7; O2SAT 95
[2024-07-11] MEDS: acetaMINOPHEN WITH coDEINE 1 TAB TAB PO ONE (15:40)
[2024-07-11] MEDS: dexaMETHasone SOD PHOSPHATE 4 MG/ML 1ML VIAL IM ONE (15:40)
--- NOTE | 2024-07-11 15:52 | HMCIMG ---
HIP UNILAT 2-3VW RIGHT REASON: CHRONIC RIGHT HIP PAIN. THREE OF DJD COMPARISON: None TECHNIQUE: 3 views of the obtained of the pelvis and right hip. FINDINGS: Bones of the pelvis appear intact. There are no fractures. SI joints. Intact. There are degenerative changes in the right hip evidenced by osteophytes along the joint margin. There is moderate narrowing. There are no fractures. Soft tissues appear unremarkable. IMPRESSION: 1. Moderate to marked osteoarthritis right hip.
[2024-07-11] MEDS ORDERED: ACET-2079 PO (16:01)
== END 2024-07-11 16:17 | disposition home or self-care (01) ==
LOC: EDH 15:14
DX: M16.11 Unilateral primary osteoarthritis, right hip (principal); M25.551 Pain in right hip; Z79.51 Long term (current) use of inhaled steroids; Z79.82 Long term (current) use of aspirin; Z79.899 Other long term (current) drug therapy
CPT/HCPCS: 99284; 73502; 96372; J1100

== ENCOUNTER 2024-08-31 08:34 | Observation (INO) | payer MEDICAID ==
[2024-08-29 10:24] LABS: IMMATURE GRANULOCYTE ABSOLUTE 0.04 K/uL (0-1); NUCLEATED RED BLOOD CELLS 0.0 % (0.0-0.19); PLATELET COUNT (AUTO) 219 K/uL (130-400); RED BLOOD CELL COUNT(AUTO) 5.47 MIL/uL (4.00-5.50); RED CELL DISTRIBUTION WIDTH 14.4 % (11.0-15.5); WHITE BLOOD COUNT (AUTO) 11.0 K/uL (4.8-10.8)
[2024-08-29 10:33] LABS: APPEARANCE,URINE CLOUDY (CLEAR); GLUCOSE, URINE (UA) >=1000 mg/dL (NEGATIVE); LEUKOCYTE ESTERASE ,URINE 75 Leu/uL (NEGATIVE); NITRATE,URINE NEGATIVE (NEGATIVE); OCCULT BLOOD,URINE NEGATIVE (NEGATIVE)
[2024-08-29 10:34] LABS: ADD UA MICROSCOPIC YES
[2024-08-29 10:37] LABS: CREATININE 0.5 mg/dL (0.5-1.0); GLOMERULAR FILTR. RATE CALC 105.0 mL/min (>90); GLUCOSE,RANDOM 106.0 mg/dL (70-105); SODIUM SERUM 141.0 mmol/L (136-145); UREA NITROGEN, BLOOD 9.0 mg/dL (7-18)
[2024-08-29 10:40] LABS: SQUAMOUS EPITHELIAL CELL,UR MANY /HPF (0-2)
[2024-08-29 10:42] VITALS: BP 155/56; PULSE 62; RESP 18; TEMP 97.9
[2024-08-29 10:55] LABS: INR 0.99 (0.85-1.15)
--- NOTE | 2024-08-29 14:26 | NUR ---
PREOP INCENTIVE SPIROMETRY TEACHING DONE BY SHANNAN QUINTERO
--- NOTE | 2024-08-30 13:35 | NUR ---
RE: LABS REPORTED UA RESULTS AND CBC RESULTS TO DR RICHARD. RECEIVED ORDERS FOR GENTAMICIN 240MG IV TO BE GIVEN IN OR HOLDING.
[~2024-08-31] VITALS: Ht 152.4 cm; Wt 75.7 kg
[2024-08-31] VITALS (21 sets, daily range): BP systolic 108–142; BP diastolic 53–81; PULSE 59–78; RESP 16–20; TEMP 97–98.3; O2SAT 95–100
[~2024-08-31 08:34] MED LIST changes: -ASPI-1197 PO; -AZIT500T PO; -BIMA12.5OS OU; +DAPA10TA PO; -ERGO500093 PO; -FAMO20TA8 PO; -FLUT1AER IH; -HYDR-4458 PO; -INSLAN SQ; -LEVO125T11 PO; +LEVO150C5 PO; -LORA0.5T83 PO; -LOSA100T59 PO; -METF-446 PO; -METH4TAB3 PO; +METO-408 PO; +SITA100T12 PO
[2024-08-31] MEDS: GENTAmicin SULFate 80 MG/2 ML 240 MG in 0.9%NACL 100ML 100 ML IV ONE (09:15)
[2024-08-31] MEDS: 0.9%NACL 1000ML 1,000 ML IV ONE (09:20)
--- NOTE | 2024-08-31 09:27 | NUR ---
GENTAMICIN DID NOT HAVE BARCODE TO SCAN.
[2024-08-31] MEDS: GABAPENTIN 300 MG CAPSULE ONE (10:53)
[2024-08-31] MEDS: FAMOTIDINE 20MG VIAL IV ONE (10:54)
[2024-08-31] MEDS ORDERED: LIDOCAINE PF 100MG/5ML (2%) SYRINGE 5ML ONE (11:08)
[2024-08-31] MEDS ORDERED: VANCOMYCIN 500MG+NS 100ML 100 ML IV ONE (11:27)
[2024-08-31] MEDS ORDERED: TRANEXAMIC ACID 1000MG/10ML ONE (13:31)
[2024-08-31] MEDS ORDERED: NEOSTIGMINE METHYLSULFATE 1MG/ML IV ONE (15:03)
[2024-08-31] MEDS ORDERED: GLYCOPYRROLATE 0.2 MG/ML 5 ML VIAL ONE (15:03)
--- NOTE | 2024-08-31 15:19 | OP ---
Operative Note: DATE OF PROCEDURE: 08/31/24 SURGEON: RODRIGUEZ RICHARD MD BUSINESS CONTINUITY STRATEGY DIRECTOR: [Wilfrido Collier CFA] ANESTHESIA: [General anesthesia] ANESTHESIOLOGIST/CELL FEED DEPARTMENT SUPERVISOR: [Carly Finney CRNA, Syed Headley CRNA] PREOPERATIVE DIAGNOSIS: [Right hip osteoarthritis] POSTOPERATIVE DIAGNOSIS: [same] IMPLANTS: [Biomet taperloc femur size 10, G7 acetabular shell size 54 G7 high wall liner size 36 modular head size 36-3] PROCEDURE: [Left total hip arthroplasty] ESTIMATED BLOOD LOSS: [200 mL] INDICATIONS: [64-year-old female with history of severe pain to the right hip secondary to severe osteoarthritis. The patient is being admitted for a total hip arthroplasty, procedure that she understood this well as the risks involved, benefits and possible complications and agreed to sign the consent form] DESCRIPTION OF PROCEDURE: [After adequate general anesthesia was achieved and regional block obtained the patient was placed in the left lateral decubitus with the use of the beanbag and hip holders. The left lower extremity was prepped and draped in the usual manner after x-rays taken with the C-arm were used to check the position of the pelvis. After anatomic landmarks were identified we proceeded to make an incision in the skin centered on the greater trochanter and with a slight curve posteriorly followed by dissection of the subcutaneous tissue with the use of the Bovie cautery. The tensor fascia rosie and gluteus lor fascia were then opened longitudinally and the fibers of the gluteus muscle were split manually entering into the deep space applying then the Charnley retractor. A bone infusion needle was then inserted in the lateral aspect of the greater trochanter and through this needle we proceeded to inject 500 mg of vancomycin mixed with 50 mL of normal saline. The posterior border of the gluteus medius was identified and elevated and a curved Hohmann retractor was inserted underneath to be able to expose the gluteus minimus and short external rotators. The interval between the piriformis and gluteus minimus was open with the use of the Bovie cautery and then the rotators and capsule were detached from their femoral neck insertion and retracted posteriorly entering into the hip joint. At this point a marker was applied in the iliac bone just superior to the acetabulum with the use of drill guide to be able to check the offset and the length of the extremity at the level of the trochanter. Once the marker was made this was passed to the back table. We then proceeded to dislocate the hip by flexing the hip and then internally rotating it and after retractors were applied to the base of the femoral neck we proceeded to use the oscillating saw to cut the neck at this level. We then proceeded to use a box osteotome to enter the canal followed by insertion of the canal finder and then we proceeded to broach from size up to above-mentioned size. At this point we removed the last broach and packed the canal for hemostasis and after the retractors were removed we proceeded then to bring the hip into extension. Hohmann retractors were then applied anteriorly and posteriorly to the acetabulum removing then the labrum and foveal tissue. We proceeded to ream the acetabulum medializing it obtaining adequate cortico-cancellous bone. After irrigation was of the acetabulum was completed we proceeded then to apply the final component and x-rays were taken correcting the orientation of the acetabulum to its final position. Then a trial liner was inserted as well as a trial femur and then we proceeded to apply the trial femoral heads reducing the hip and taken x-rays until we identify the adequate size component using the m arker to check the length and offset as well as clinically using the shuck test and measuring the leg length. Once we were satisfied we proceeded to remove the components from the femur and the trial liner after dislocating the hip and after copious irrigation of the joint was completed we then proceeded to apply the final liner followed by the insertion of the final femoral stem femoral head. Once the hip was reduced we used a marker once again and the leg length and offset were normal and clinically the patient had normal length, negative shuck test and x-rays reveal adequate leg length compared to the opposite hip. The joint was then copiously irrigated with a diluted Betadine solution followed by irrigation with antibiotic solution with jet lavage once again and we then proceeded to take final x-rays and then to close the wound first with approximation of the capsule with #1 Vicryl simple stitches followed by approximation of the short external rotators with #2 PDS suture passing the sutures through the bone. The Charnley retractor was then removed and the gluteus lor fascia was closed with a #1 Vicryl running stitch and the tensor fascia rosie with #1 Vicryl crossed stitches. The subcutaneous tissue was closed with #2 Monocryl inverted stitches and the skin was closed with 3-0 Monocryl subcuticularly. A suction dressing was then applied to the incision and the drapes were then removed the patient being placed in the supine position. Leg length was checked and noted to be adequate. The patient was then transferred to a hospital bed and taken to recovery room for follow-up by anesthesia. There were no complications during the procedure.] RODRIGUEZ RICHARD MD Aug 31, 2024 15:19
--- NOTE | 2024-08-31 15:52 | NUR ---
Discharge planning This CM pulled HH by insurance option on [employer] webpage. Called [facility], [facility], [facility], [facility], [facility], AND [facility], [facility]. Either they were not in-network or did not offer PT. This CM called [facility] and informed they do accept [facility]. This CM faxed demographic sheet to confirm. [facility] states accepts patient's insurance if DME is needed. CM to follow up with patient regarding discharge planning and provide available option. CM to continue to follow.
[2024-08-31] MEDS ORDERED: PoTASSium chl 10% ELIXIR 20MEQ 20 MEQ/15 ML UDCUP PO PRN (16:00)
[2024-08-31] MEDS ORDERED: CALCIUM CARB 500MG PO PRN (16:00)
[2024-08-31] MEDS ORDERED: PoTASSium chloRIDE 20MEQ ER 20 MEQ ERTAB PO PRN (16:00)
[2024-08-31] MEDS ORDERED: FERROUS FUMARATE 324 MG TABLET PO PRN (16:00)
--- NOTE | 2024-08-31 16:18 | NUR ---
Discharge Planning Spoke to Dr. Basilio and informed SNF typically not approved and IRU not in-network. [facility] states they will not have a nurse until Tuesday. ARACELI Diallo spoke with Radha from [facility] who stated will only take a BRIA patient if on IV ABX and PT. ARACELI Mendez spoke to [facility]/ [facility] to see if HH will take a kary. Pending call back. This CM spoke to Renee with [facility] who states that if [facility] is able to accept BRIA patient's just with PT. CM to provide options to patient once patient comes up to the unit.
[2024-08-31] MEDS: 0.9%NACL 1000ML 1,000 ML IV SCH (17:45)
[2024-08-31] MEDS ORDERED: ZIPR60CA6 PO (21:01)
[2024-08-31] MEDS: FAMOTIDINE 20MG TAB PO SCH (21:04)
--- NOTE | 2024-08-31 23:14 | NUR ---
Patient voided, assisted to bedside commode with walker. Unsteady gait. Assisted back to bed. Fall precautions in place. Bed alarm on. Call light within reach.
[2024-09-01] VITALS (8 sets, daily range): BP systolic 110–135; BP diastolic 45–64; PULSE 49–60; RESP 16–20; TEMP 97.8–98.6; O2SAT 98
[2024-09-01 04:41] LABS: NUCLEATED RED BLOOD CELLS 0.0 % (0.0-0.19); PLATELET COUNT (AUTO) 184.0 K/uL (130-400); RED BLOOD CELL COUNT(AUTO) 4.35 MIL/uL (4.00-5.50); RED CELL DISTRIBUTION WIDTH 14.2 % (11.0-15.5); WHITE BLOOD COUNT (AUTO) 13.0 K/uL (4.8-10.8)
[2024-09-01 05:00] LABS: CREATININE 0.9 mg/dL (0.5-1.0); GLOMERULAR FILTR. RATE CALC 71.0 mL/min (>90); GLUCOSE,RANDOM 218.0 mg/dL (70-105); SODIUM SERUM 139.0 mmol/L (136-145); UREA NITROGEN, BLOOD 15.0 mg/dL (7-18)
--- NOTE | 2024-09-01 05:25 | NUR ---
Patient unable to sit up to chair, unsteady gait and buckled right leg. Pending physical therapy evaluation.
[2024-09-01] MEDS: Sitagliptin Phosphate (Januvia) 100 MG) PO SCH (07:58)
[2024-09-01] MEDS: ZIPRASIDONE HCL 20 MG CAPSULE PO SCH (07:59)
[2024-09-01] MEDS: EMPAGLIFLOZIN 25MG TABLET PO SCH (08:01)
--- NOTE | 2024-09-01 08:50 | HMCIMG ---
Intraoperative fluoroscopic assessment of the right hip INDICATION: Right hip arthroplasty COMPARISON: Not available Fluoroscopy time: 17 seconds. FINDINGS: 5 images demonstrate undergoing right hip arthroplasty with the hip prosthesis in anatomical position. IMPRESSION: Details of the finding in the operative notes
--- NOTE | 2024-09-01 10:06 | PN ---
Ortho postop day one. This morning the patient is awake alert and oriented. She is out of bed and at the time of visit she is on the bedside commode. Reports that she has already had a BM and voiding without difficulty. Reports adequate pain control she is in no acute distress. Vital signs have been stable. Afebrile. Laboratory results reviewed. Operative findings discussed with the patient. The dressing is intact. She has been icing. The distal neurovascular exam intact. Negative Homans. She is pending physical therapy this morning. Discussed with the patient that her benefits are limited and case management is working for placement at [facility]. Assessment: Status post right total hip arthroplasty. Plan: Continue with Dr. Basilio total hip arthroplasty protocol and discharge planning Vitals/Labs Vital Signs Date Time Temp Pulse Resp B/P (MAP) Pulse Ox O2 Delivery O2 Flow Rate FiO2 09/01/24 07:44 98.2 57 18 123/56 98 Room Air 08/31/24 21:00 0 21 Laboratory Tests 09/01/24 04:11 Medications Current Medications Gentamicin Sulfate 240 mg/ Sodium Chloride 106 ml @ 100 mls/hr ONCE ONCE IV Last administered on 08/31/24at 09:15; Start 08/30/24 at 14:00; Stop 08/30/24 at 15:03; Status DC Sodium Chloride 1,000 ml @ As Directed STK-MED ONCE IV Last administered on 08/31/24at 09:20; Start 08/31/24 at 08:50; Stop 08/31/24 at 08:50; Status DC Cefazolin Sodium 2 gm STK-MED ONCE .ROUTE; Start 08/31/24 at 08:52; Stop 08/31/24 at 08:53; Status DC Gabapentin 300 mg STK-MED ONCE .ROUTE; Start 08/31/24 at 10:53; Stop 08/31/24 at 10:53; Status DC Acetaminophen 100 ml @ As Directed STK-MED ONCE .ROUTE; Start 08/31/24 at 10:53; Stop 08/31/24 at 10:54; Status DC Famotidine 20 mg STK-MED ONCE IV; Start 08/31/24 at 10:54; Stop 08/31/24 at 10:54; Status DC Lidocaine HCl 100 mg STK-MED ONCE .ROUTE; Start 08/31/24 at 11:08; Stop 08/31/24 at 11:13; Status DC Propofol 200 mg STK-MED ONCE IV; Start 08/31/24 at 11:08; Stop 08/31/24 at 11:13; Status DC Rocuronium [place] 50 mg STK-MED ONCE .ROUTE; Start 08/31/24 at 11:08; Stop 08/31/24 at 11:13; Status DC Fentanyl Citrate 100 mcg STK-MED ONCE .ROUTE; Start 08/31/24 at 11:09; Stop 08/31/24 at 11:13; Status DC Ropivacaine 150 mg STK-MED ONCE .ROUTE; Start 08/31/24 at 11:09; Stop 08/31/24 at 11:13; Status DC Cefazolin Sodium 1 gm STK-MED ONCE .ROUTE; Start 08/31/24 at 11:27; Stop 08/31/24 at 11:28; Status DC Vancomycin HCl 100 ml @ As Directed STK-MED ONCE IV; Start 08/31/24 at 11:27; Stop 08/31/24 at 11:28; Status DC Ondansetron HCl 4 mg STK-MED ONCE .ROUTE; Start 08/31/24 at 12:50; Stop 08/31/24 at 12:51; Status DC Dexamethasone Sodium Phosphate 10 mg STK-MED ONCE .ROUTE; Start 08/31/24 at 12:51; Stop 08/31/24 at 12:51; Status DC Ketamine HCl 50 mg STK-MED ONCE .ROUTE; Start 08/31/24 at 12:58; Stop 08/31/24 at 12:58; Status DC Ephedrine Sulfate 50 mg STK-MED ONCE .ROUTE; Start 08/31/24 at 13:02; Stop 08/31/24 at 13:02; Status DC Tranexamic Acid 1,000 mg STK-MED ONCE .ROUTE; Start 08/31/24 at 13:31; Stop 08/31/24 at 13:32; Status DC Cefazolin Sodium 2 gm STK-MED ONCE IVPB Last administered on 08/31/24at 13:00; Start 08/31/24 at 13:00; Stop 08/31/24 at 14:02; Status DC Tranexamic Acid 1,000 mg STK-MED ONCE IV Last administered on 08/31/24at 13:32; Start 08/31/24 at 13:32; Stop 08/31/24 at 14:02; Status DC Rocuronium [place] 50 mg STK-MED ONCE .ROUTE; Start 08/31/24 at 14:25; Stop 08/31/24 at 14:26; Status DC Glycopyrrolate 1 mg STK-MED ONCE .ROUTE; Start 08/31/24 at 15:03; Stop 08/31/24 at 15:03; Status DC Neostigmine Methylsulfate 10 mg STK-MED ONCE IV; Start 08/31/24 at 15:03; Stop 08/31/24 at 15:03; Status DC Sodium Chloride 1,000 ml @ 100 mls/hr Q10H IV Last administered on 08/31/24at 17:45; Start 08/31/24 at 16:00; Stop 09/01/24 at 15:59 Polyethylene Glycol 17 gm DAILY PO Last administered on 09/01/24at 07:58; Start 09/01/24 at 09:00; Stop 10/01/24 at 08:59 Bisacodyl 10 mg DAILY PRN RC; Start 09/03/24 at 16:00; Stop 10/03/24 at 15:59 Ketorolac Tromethamine 15 mg Q6H PRN IV Last administered on 08/31/24at 21:25; Start 08/31/24 at 16:00; Stop 09/05/24 at 15:59 Famotidine 20 mg BID PO Last administered on 09/01/24at 07:58; Start 08/31/24 at 21:00; Stop 09/30/24 at 20:59 Ferrous Fumarate 324 mg DAILY PRN PO; Start 08/31/24 at 16:00; Stop 09/30/24 at 15:59 Temazepam 15 mg HS PRN PO; Start 08/31/24 at 16:00; Stop 09/30/24 at 15:59 Calcium Carbonate 500 mg Q12H PRN PO; Start 08/31/24 at 16:00; Stop 09/30/24 at 15:59 Diphenhydramine HCl 25 mg Q6H PRN IVP; Start 08/31/24 at 16:00; Stop 09/30/24 at 15:59 Insulin Human Regular INSULIN SLIDING SCAL... ACHS SQ Last administered on 09/01/24at 06:21; Start 08/31/24 at 16:30; Stop 09/30/24 at 16:29 Ondansetron HCl 4 mg Q6H PRN IVP; Start 08/31/24 at 16:00; Stop 09/30/24 at 15:59 Cefazolin Sodium 2 gm Q8H IVP Last administered on 09/01/24at 04:26; Start 08/31/24 at 21:00; Stop 09/01/24 at 05:01; Status DC Potassium Chloride 100 ml @ 100 mls/hr AD PRN IV; Start 08/31/24 at 16:00; Stop 09/30/24 at 15:59 Potassium Chloride 20 meq AD PRN PO; Start 08/31/24 at 16:00; Stop 09/30/24 at 15:59 Potassium Chloride 20 meq AD PRN PO; Start 08/31/24 at 16:00; Stop 09/30/24 at 15:59 Oxycodone HCl 5 mg Q4H PRN PO; Start 08/31/24 at 16:00; Stop 09/07/24 at 15:59 Oxycodone HCl 10 mg Q4H PRN PO Last administered on 09/01/24at 05:04; Start 08/31/24 at 16:00; Stop 09/07/24 at 15:59 Acetaminophen 1,000 mg Q8H PO Last administered on 09/01/24at 07:58; Start 08/31/24 at 16:00; Stop 09/30/24 at 15:59 Apixaban 2.5 mg BID PO Last administered on 09/01/24at 07:58; Start 08/31/24 at 21:00; Stop 09/30/24 at 20:59 Fentanyl Citrate 100 mcg STK-MED ONCE .ROUTE Last administered on 08/31/24at 16:16; Start 08/31/24 at 16:12; Stop 08/31/24 at 16:12; Status DC Metoprolol Succinate 25 mg AM PO Last administered on 09/01/24at 08:01; Start 09/01/24 at 09:00; Stop 10/01/24 at 08:59 Empaglifozin 25 mg AM PO Last administered on 09/01/24at 08:01; Start 09/01/24 at 09:00; Stop 10/01/24 at 08:59 Levothyroxine Sodium 150 mcg SYN PO Last administered on 09/01/24at 06:19; Start 09/01/24 at 06:30; Stop 10/01/24 at 06:29 Oxcarbazepine 150 mg BID PO; Start 09/01/24 at 09:00; Stop 10/01/24 at 08:59 Atorvastatin Calcium 10 mg HS PO; Start 09/01/24 at 21:00; Stop 10/01/24 at 20:59 Home Med AM PO; Start 09/01/24 at 09:00; Stop 10/01/24 at 08:59 Ziprasidone 60 mg BID PO; Start 09/01/24 at 09:00; Stop 10/01/24 at 08:59 TERESA HOPPER NP Sep 01, 2024 10:05
--- NOTE | 2024-09-01 12:46 | NUR ---
CM NOTE met with pt and discussed dc planning and states prefers to go to [facility] level of care so choice letter obtained for [facility] in [place] that accepts her insurance for rehab. and then received a call from daughter that states she prefers that pt goes to home and states she can ensure that pt has 24/7 coverage for long as needed per md recommendation. choice letter obtained for both snf and home health any in network. PT IS NOW AGREEABLE TO GO HOME WITH HOME HEALTH CHOICE LETTER OBTAINED FOR ANY IN NETWORK HH AND DME.
--- NOTE | 2024-09-01 13:48 | NUR ---
CM NOTE referral sent to [facility] that [facility] home health and dme referral to [facility]. pending approval.
[2024-09-02] VITALS (7 sets, daily range): BP systolic 101–149; BP diastolic 51–72; PULSE 63–81; RESP 16–19; TEMP 97.9–98.7; O2SAT 95
--- NOTE | 2024-09-02 15:19 | NUR ---
CM NOTE CALL MADE TO [facility] [phone] AND states that she has received the referral and is being processed but, there is no one that can accept pt today, they will need to review on tuesday.
--- NOTE | 2024-09-02 16:25 | NUR ---
cm note spoke to Martin BRIDGES that we are still pending approval from [facility] [phone] verified today and still pending approval. states that she has sent the referral to [facility]and they stated they accepted but will be able to see pt on Tuesday. also referral was sent to [facility] and is pending approval, but can provide loaner walker if needed until approved. call made to Dr shelley, states will plan for dc tomorrow. updated primary nurse.
[2024-09-03] VITALS: BP 127/59; PULSE 79; RESP 20; TEMP 98.3
[2024-09-03 04:00] VITALS: BP 123/52; PULSE 60; RESP 20; TEMP 97.9
--- NOTE | 2024-09-03 06:07 | NUR ---
Patient sitting in chair and showered. Tolerated transfer to chair well. Denies pain. Chair alarm on. Call light within reach.
[2024-09-03 08:00] VITALS: BP 145/54; PULSE 72; RESP 18; TEMP 98
[2024-09-03 08:02] VITALS: O2SAT 97
--- NOTE | 2024-09-03 08:34 | PN ---
Postop day 3. This morning patient is awake alert and oriented. She is in no acute distress reporting adequate pain control. Vital signs have remained stable and she has remained afebrile. The bree dressing is intact flushing green. She has had bowel movement and is voiding on her own without difficulty. She is progressing with physical therapy doing very well yesterday ambulating 100 ft in the morning and 100 and feet in the afternoon. Discussed with the patient that we will allow to discharge today Assessment: Status post right total hip arthroplasty. Plan: Continue with Dr. Basilio total hip arthroplasty protocol and discharge planning. Vitals/Labs Vital Signs Date Time Temp Pulse Resp B/P (MAP) Pulse Ox O2 Delivery O2 Flow Rate FiO2 09/03/24 04:00 97.9 60 20 123/52 97 Room Air 09/02/24 20:00 0 21 Medications Current Medications Gentamicin Sulfate 240 mg/ Sodium Chloride 106 ml @ 100 mls/hr ONCE ONCE IV Last administered on 08/31/24at 09:15; Start 08/30/24 at 14:00; Stop 08/30/24 at 15:03; Status DC Sodium Chloride 1,000 ml @ As Directed STK-MED ONCE IV Last administered on 08/31/24at 09:20; Start 08/31/24 at 08:50; Stop 08/31/24 at 08:50; Status DC Cefazolin Sodium 2 gm STK-MED ONCE .ROUTE; Start 08/31/24 at 08:52; Stop 08/31/24 at 08:53; Status DC Gabapentin 300 mg STK-MED ONCE .ROUTE; Start 08/31/24 at 10:53; Stop 08/31/24 at 10:53; Status DC Acetaminophen 100 ml @ As Directed STK-MED ONCE .ROUTE; Start 08/31/24 at 10:53; Stop 08/31/24 at 10:54; Status DC Famotidine 20 mg STK-MED ONCE IV; Start 08/31/24 at 10:54; Stop 08/31/24 at 10:54; Status DC Lidocaine HCl 100 mg STK-MED ONCE .ROUTE; Start 08/31/24 at 11:08; Stop 08/31/24 at 11:13; Status DC Propofol 200 mg STK-MED ONCE IV; Start 08/31/24 at 11:08; Stop 08/31/24 at 11:13; Status DC Rocuronium Nebo 50 mg STK-MED ONCE .ROUTE; Start 08/31/24 at 11:08; Stop 08/31/24 at 11:13; Status DC Fentanyl Citrate 100 mcg STK-MED ONCE .ROUTE; Start 08/31/24 at 11:09; Stop 08/31/24 at 11:13; Status DC Ropivacaine 150 mg STK-MED ONCE .ROUTE; Start 08/31/24 at 11:09; Stop 08/31/24 at 11:13; Status DC Cefazolin Sodium 1 gm STK-MED ONCE .ROUTE; Start 08/31/24 at 11:27; Stop 08/31/24 at 11:28; Status DC Vancomycin HCl 100 ml @ As Directed STK-MED ONCE IV; Start 08/31/24 at 11:27; Stop 08/31/24 at 11:28; Status DC Ondansetron HCl 4 mg STK-MED ONCE .ROUTE; Start 08/31/24 at 12:50; Stop 08/31/24 at 12:51; Status DC Dexamethasone Sodium Phosphate 10 mg STK-MED ONCE .ROUTE; Start 08/31/24 at 12:51; Stop 08/31/24 at 12:51; Status DC Ketamine HCl 50 mg STK-MED ONCE .ROUTE; Start 08/31/24 at 12:58; Stop 08/31/24 at 12:58; Status DC Ephedrine Sulfate 50 mg STK-MED ONCE .ROUTE; Start 08/31/24 at 13:02; Stop at 13:02; Status DC Tranexamic Acid 1,000 mg STK-MED ONCE .ROUTE; Start 08/31/24 at 13:31; Stop 08/31/24 at 13:32; Status DC Cefazolin Sodium 2 gm STK-MED ONCE IVPB Last administered on 08/31/24at 13:00; Start 08/31/24 at 13:00; Stop 08/31/24 at 14:02; Status DC Tranexamic Acid 1,000 mg STK-MED ONCE IV Last administered on 08/31/24at 13:32; Start 08/31/24 at 13:32; Stop 08/31/24 at 14:02; Status DC Rocuronium Nebo 50 mg STK-MED ONCE .ROUTE; Start 08/31/24 at 14:25; Stop 08/31/24 at 14:26; Status DC Glycopyrrolate 1 mg STK-MED ONCE .ROUTE; Start 08/31/24 at 15:03; Stop 08/31/24 at 15:03; Status DC Neostigmine Methylsulfate 10 mg STK-MED ONCE IV; Start 08/31/24 at 15:03; Stop 08/31/24 at 15:03; Status DC Sodium Chloride 1,000 ml @ 100 mls/hr Q10H IV Last administered on 08/31/24at 17:45; Start 08/31/24 at 16:00; Stop 09/01/24 at 16:00; Status DC Polyethylene Glycol 17 gm DAILY PO Last administered on 09/01/24at 07:58; Start 09/01/24 at 09:00; Stop 10/01/24 at 08:59 Bisacodyl 10 mg DAILY PRN RC; Start 09/03/24 at 16:00; Stop 10/03/24 at 15:59 Ketorolac Tromethamine 15 mg Q6H PRN IV Last administered on 09/03/24at 00:31; Start 08/31/24 at 16:00; Stop 09/05/24 at 15:59 Famotidine 20 mg BID PO Last administered on 09/02/24at 20:44; Start 08/31/24 at 21:00; Stop 09/30/24 at 20:59 Ferrous Fumarate 324 mg DAILY PRN PO; Start 08/31/24 at 16:00; Stop 09/30/24 at 15:59 Temazepam 15 mg HS PRN PO; Start 08/31/24 at 16:00; Stop 09/30/24 at 15:59 Calcium Carbonate 500 mg Q12H PRN PO; Start 08/31/24 at 16:00; Stop 09/30/24 at 15:59 Diphenhydramine HCl 25 mg Q6H PRN IVP; Start 08/31/24 at 16:00; Stop 09/30/24 at 15:59 Insulin Human Regular INSULIN SLIDING SCAL... ACHS SQ Last administered on 09/01/24at 06:21; Start 08/31/24 at 16:30; Stop 09/30/24 at 16:29 Ondansetron HCl 4 mg Q6H PRN IVP; Start 08/31/24 at 16:00; Stop 09/30/24 at 15:59 Cefazolin Sodium 2 gm Q8H IVP Last administered on 09/01/24at 04:26; Start 08/31/24 at 21:00; Stop 09/01/24 at 05:01; Status DC Potassium Chloride 100 ml @ 100 mls/hr AD PRN IV; Start 08/31/24 at 16:00; Stop 09/30/24 at 15:59 Potassium Chloride 20 meq AD PRN PO; Start 08/31/24 at 16:00; Stop 09/30/24 at 15:59 Potassium Chloride 20 meq AD PRN PO; Start 08/31/24 at 16:00; Stop 09/30/24 at 15:59 Oxycodone HCl 5 mg Q4H PRN PO Last administered on 09/02/24at 20:46; Start 08/31/24 at 16:00; Stop 09/07/24 at 15:59 Oxycodone HCl 10 mg Q4H PRN PO Last administered on 09/03/24at 06:56; Start 08/31/24 at 16:00; Stop 09/07/24 at 15:59 Acetaminophen 1,000 mg Q8H PO Last administered on 09/02/24at 23:15; Start 08/31/24 at 16:00; Stop 09/30/24 at 15:59 Apixaban 2.5 mg BID PO Last administered on 09/02/24at 20:43; Start 08/31/24 at 21:00; Stop 09/30/24 at 20:59 Fentanyl Citrate 100 mcg STK-MED ONCE .ROUTE Last administered on 08/31/24at 16:16; Start 08/31/24 at 16:12; Stop 08/31/24 at 16:12; Status DC Metoprolol Succinate 25 mg AM PO Last administered on 09/02/24at 08:24; Start 09/01/24 at 09:00; Stop 10/01/24 at 08:59 Empaglifozin 25 mg AM PO Last administered on 09/02/24at 08:24; Start 09/01/24 at 09:00; Stop 10/01/24 at 08:59 Levothyroxine Sodium 150 mcg SYN PO Last administered on 09/03/24at 05:50; Start 09/01/24 at 06:30; Stop 10/01/24 at 06:29 Oxcarbazepine 150 mg BID PO Last administered on 09/02/24at 20:44; Start 09/01/24 at 09:00; Stop 10/01/24 at 08:59 Atorvastatin Calcium 10 mg HS PO Last administered on 09/02/24at 20:44; Start 09/01/24 at 21:00; Stop 10/01/24 at 20:59 Home Med AM PO; Start 09/01/24 at 09:00; Stop 10/01/24 at 08:59 Ziprasidone 60 mg BID PO Last administered on 09/02/24at 20:44; Start 09/01/24 at 09:00; Stop 10/01/24 at 08:59 TERESA HOPPER NP Sep 03, 2024 08:34
[2024-09-03 12:00] VITALS: BP 152/62; PULSE 82; RESP 18; TEMP 98.1
--- NOTE | 2024-09-03 12:00 | NUR ---
[facility] Consult: Patient assessed by wound healing team. See wound assessment. Assessment and recommendations provided. Education provided. Addendum: 09/04/24 at 1034 by WESTLEY FRAGA Amended: Links added. Addendum: 09/05/24 at 1529 by WESTLEY FRAGA Patient assessed by wound healing team. Patient with no wounds or skin breakdown noted. Assessment and recommendations provided to primary nurse. Education provided.
--- NOTE | 2024-09-03 12:15 | NUR ---
CM NOTE: PENDING TO [facility] CM REACHED OUT TO [facility], SPOKE TO PRAKASH STATED THEY ARE IN NETWORK W/[employer] BUT WILL NEED TO VERIFY COVERAGE, ORDER AND CLINICALS SENT VIA SECURE FAX AND EMAIL, PENDING REP CALL BACK ONCE VERIFIED. CM SPOKE TO DR RICHARD, MADE AWARE CM IS HAVING DIFFICULTY SECURING HH FOR PATIENT, ASKED IF OKAY TO HAVE OFFICE VERIFY IF INSURANCE COVER OUTPATIENT PT INSTEAD, PER MD THEIR OFFICE IS NOT IN NETWORK, MD REC TO TRY [facility] TO SEE IF THEY CAN ASSIST PATIENT ONE TIME. CM ALSO SENT PACKET TO [employer] [facility] [employer], PENDING REP RESPONSE. CM CALLED [facility] TO F/U ON WALKER, CURRENTLY OUT TO LUNCH PER ANSWERING SERVICES, CM TO CALL BACK AFTER 1:30PM TODAY. PENDING DME APPROVAL AND DELIVERY AT THIS TIME AND CM PENDING TO [facility]. Addendum: 09/03/24 at 1220 by KATERINA FINNEY LVN CM Amended: Links added.
--- NOTE | 2024-09-03 13:59 | NUR ---
DCP CM MET WITH PT ASSESSMENT DONE, PT IS INDEPENDENT PRIOR TO SURGERY, LIVES AT HOME ALONE, HAS FRIENDS NEARBY THAT SHE CALLS WHENEVER SHE NEEDS HELP, DAUGHTER LIVES CLOSE BY WELL. DENIES ANY EQUIPMENT/SERVICES. FEELS SAFE TO GO BACK HOME, DAUGHTER ABLE TO ASSIST WITH TRANSPORTATION AND NEEDS NECESSARY. PT UPDATED ON POC, MADE AWARE THIS CM TRIED ALL HOME HEALTH COMPANIES IN THE [place], UNABLE TO ACCEPT PT D/T INSURANCE, PATIENT DOES NOT HAVE PT COVERAGE WILL ONLY ABLE TO ASSIST PT IF NEEDING IV ABX. PT MADE AWARE CM UPDATED DR HILARY MD OFFICE IS GOING TO ARRANGE OUTPATIENT PT INSTEAD AND PT TO F/U W/ FOR DRESSING CHANGE SCHEDULED. DCP HOME ONCE STABLE. CM TO CONTINUE TO FOLLOW UP. Addendum: 09/03/24 at 1402 by KATERINA FINNEY LVN CM Amended: Links added.
[2024-09-03 16:00] VITALS: BP 137/55; PULSE 77; RESP 18; TEMP 98.4
[2024-09-03] MEDS ORDERED: AEC81 PO (16:44)
[2024-09-03] MEDS ORDERED: OXYC-38 PO (16:44)
--- NOTE | 2024-09-03 16:51 | DS ---
DISCHARGE SUMMARY [ Date of admission: 08/31/2024 Date of discharge: 09/03/2024 Final diagnosis: Right hip osteoarthritis Surgical procedures: Right total hip arthroplasty on 08/31/2024 Summary of History and Physical: The patient is a 64 year-old female with history of severe arthrosis to the right hip that has been present for several years and has been treated conservatively with no longer adequate response to treatment. The patient is being admitted for total hip arthroplasty. Previous medical and surgical history: Please review H and P on admission Family history: No relevant for present condition Social history: Negative for use of tobacco or alcohol. Allergies: NKDA. Review of system: Negative on admission Hospital course: The patient was admitted and taken to the operating room for a total hip arthroplasty, procedure that went uneventful. Postoperatively the patient remained hemodynamically stable and afebrile. The patient received antibiotic and anticoagulation prophylaxis as per protocol. The patient was evaluated by physical therapy and started rehabilitation treatment with am bulation with the use of walker, weightbearing as tolerated, hip precautions, range of motion exercises and bed transfers. The patient was also evaluated by case management and arrangements were attempted to be made for the patient to go home with home health but her insurance did not cover any of these services. Arrangements were made from our office to be followed in one week for dressing removal and our office also arranged for the patient to be seen in an outpatient physical therapy facility. The patient tolerated diet well. On postop day #3 all the arrangements were completed, and the patient was dismissed . Condition on discharge: Good Disposition: The patient will be dismissed home. Follow-up will be done at the office in 1 week. The patient is to continue with physical therapy and rehabilitation at outpatient facility already arranged for her. She is to be ambulatory with the use of a walker, weightbearing as tolerated and continue with hip precautions. Continue taking pain medication as instructed as well as anticoagulation prophylaxis. Continue with home medications also as instructed and continue with pre admission diet.] RODRIGUEZ RICHARD MD, JOSE A MD Sep 03, 2024 16:51
--- NOTE | 2024-09-03 18:05 | NUR ---
DISCHARGE PT sitting in bed w/ eyes open A&Ox4 able to make needs known, denies pain or discomfort. Discharge instructions given verbally and written to PT, PT verbally acknowledged understanding. IVs removed intact w/o complications. PT escorted to POV via WC by [facility] [employer]
== END 2024-09-03 18:05 | disposition home or self-care (01) ==
LOC: DAH 08:34 → DAHIP 08:35 → 4AH 16:40
PROVIDERS: ADMIT Orthopaedic Surgery; ATTEND Orthopaedic Surgery
DX: M16.11 Unilateral primary osteoarthritis, right hip (principal); E11.9 Type 2 diabetes mellitus without complications; I10 Essential (primary) hypertension; E03.9 Hypothyroidism, unspecified; E78.5 Hyperlipidemia, unspecified; Z86.2 Personal history of diseases of the blood and blood-forming organs and certain disorders involving the immune mechanism; Z79.899 Other long term (current) drug therapy
CPT/HCPCS: 80048 ×2; 85025; 85610; 87086; 81001; 36415 ×2; 87641; 27130; 96372 ×2; 96365; 96366 ×2; 96375; 96367; 82948 ×14; 88311; 88304; 73503; 96376 ×3; 85027; 97161; 97116 ×6; 97530 ×7; J1580; G0378 ×74; A4663; C1713 ×4; A4600; J3490 ×8; J3010 ×2; J0690 ×5; J1100; J7030; J2003; J2704; J2405; J2710; J2795; J1885 ×4; J3373; J1815 ×2; A4649 ×4; A9272; A4930 ×2; C1776; A5120; A4215; A4223 ×3; A4213; A4222; A4221; A4216